=== PATIENT | male | born 1930 | race Caucasian/White ===

== ENCOUNTER 2016-08-25 05:33 | Inpatient (IN) | payer OTHER, MEDICARE ==
[2016-08-25] VITALS (25 sets, daily range): BP systolic 58–134; BP diastolic 37–79
[~2016-08-25] VITALS: Ht 185.4 cm; Wt 92.5 kg
--- NOTE | ~2016-08-25 | H ---
[facility] [place] [address] HISTORY AND PHYSICAL Name: CALLI PEREZ Room #: 443-P ADM IN M.R.#: [id number] Admission: 08/25/16 Attend Phys: Navin Orellana MD Discharge: Date of : 30 Report #: [id number] THIS REPORT FOR: //name// For History and Physical, please see office documentation/handwritten note in the patient's medical record. <ELECTRONICALLY SIGNED> By: Navin Orellana MD 08/28/16 0922 1451 Navin Orellana MD /
--- NOTE | ~2016-08-25 | DEA ---
[facility] [place] [address] [address] SUMMARY Name: CALLI PEREZ Room #: 248-P [facility] IN M.R.#: [id number] Admission: 08/25/16 Attend Phys: Navin Orellana MD Discharge: 09/02/16 Date of : 30 Report #: [id number] THIS REPORT FOR: //name// CC: Mike Orellana DATE OF SERVICE: 09/02/2016 DATE OF : 09/02/2016 HISTORY OF PRESENT ILLNESS: The patient is an 86-year-old man with complicated past medical history, who was initially admitted to the ENT service for a large right cheek squamous cell carcinoma. The patient had radical excision of the right cheek mass. The patient was also found to have bilateral pneumonia. Sputum cultures grew klebsiella. The patient was treated with Zosyn. The patient's hospital stay was complicated with delirium, that has somewhat resolved. The patient remained stable on the floor. However, few days later, the patient became increasingly confused and hypotensive. He was transferred to the intensive care unit. Although chest x-ray showed some clearing infiltrates, his oxygen requirement also has increased. Blood cultures were obtained. The patient was treated with pressors. Blood cultures started growing gram-negative rods. Infectious disease specialist was involved. Zosyn was changed to cefepime, because the patient also developed thrombocytopenia. The patient's respiratory failure became progressively worse. Given the patient's age and comorbidities, family members decided to change code status to DNR and DNI. The patient was treated with the ICU with the supportive care. Next morning, the patient's family members decided on comfort care. The patient continued to decline, became more hypotensive. He was pronounced on 09/02/2016 in the morning. <ELECTRONICALLY SIGNED> By: Yash Navarrete MD 09/06/16 1247 1133 1223 Yash Navarrete MD /nt
--- NOTE | ~2016-08-25 | HC ---
[facility] [address] [address] CONSULTATION Name: CALLI PEREZ Room #: 248-P ADM IN M.R.#: [id number] Admission: 08/25/16 Attend Phys: Navin Orellana MD Discharge: Date of : 30 Report #: [id number] THIS REPORT FOR: //name// CC: Mike Orellana This patient is seen at the request of hospitalist service for thrombocytopenia detected on CBC. He has not had evidence of increased free bleeding from venipuncture sites or IVs. 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 Orellana on 08/25. He subsequently had been on the ventilator as well as receiving antibiotic therapy for sepsis/pneumonia. He is not responsive and his history is gleaned from his old records and charts. He has had a prior history of basal cell carcinoma as well as squamous cell cancer and saw Dr. Ochoa in the spring with a 5-cm lesion involving the lower lid of the eye and cheek. He was seen by Dr. Orellana and also Dr. Meredith in regard to radiation therapy consultation. PAST MEDICAL HISTORY: He has a past medical history of chronic obstructive pulmonary disease along with being on chronic oxygen therapy. He is anticoagulated for atrial fibrillation. He has arthritis. Medically managed hypertension, hypercholesterolemia and gastric reflux. He has prior seizure disorder. He has undergone previous partial colectomy as well as rotator cuff surgery, spine surgery and a right knee arthroplasty. MEDICATIONS: As listed on the MFR. ALLERGIES: NITROGLYCERIN showing hypotension, again not an allergy. He has had nausea related to DEMEROL and tears of the skin related to ADHESIVE TAPES. SOCIAL HISTORY: Smoking, he stopped more than a year ago and is a reformed smoker. He does not drink alcohol or use illicit drugs. REVIEW OF SYSTEMS: His review of systems was not obtainable. PHYSICAL EXAMINATION: GENERAL: Shows him to be intubated and sedated. HEENT: Shows recent surgery/bandage. NECK: Supple. CHEST: Clear. CARDIOVASCULAR: Regular rhythm and rate. ABDOMEN: Distended with skin graft dressings in the right lower quadrant. EXTREMITIES: No clubbing or cyanosis. [facility] [address] [place] [address] CONSULTATION Name: CALLI PEREZ Room #: 248-P [facility] IN .R.#: [id number] Admission: 08/25/16 Attend Phys: Navin Orellana MD Discharge: Date of : 30 Report #: [id number] NEUROLOGIC: No focal localized signs. He is sedated. SKIN: Normal turgor. He is not bleeding from venipuncture sites. LABORATORY DATA: Showed platelet count of 59,000. ASSESSMENT AND PLAN: Mild thrombocytopenia. I suspect that this is related to his current antibiotic therapy and/or sepsis/pneumonia. Labs do not indicate any evidence of DIC. Since the thrombocytopenia is mild, I would not be doing anything further at this time in regard to transfusion. The infectious disease service has stopped some of his antibiotics and would follow subsequent CBCs regarding thrombocytopenia and address as needed clinically if he has evidence of untoward bleeding. By: 0915 1150 Deborah Jovel MD /nt
--- NOTE | ~2016-08-25 | 2DMMODE ---
[facility] [employer] [place] [address] 2 D/M-MODE ECHOCARDIOGRAM Name: CALLI PEREZ Room #: 243-P ADM IN .R.#: [id number] Admission: 08/25/16 Attend Phys: Navin Orellana MD Discharge: Date of : 30 Date of Service: 08/26/16 1353 Report #: [id number] THIS REPORT FOR: //name// APPROVED REPORT Study performed: 08/26/2016 12:54:11 EXAM: Comprehensive 2D, Doppler, and color-flow Echocardiogram Patient Location: ICU Room #: 243 Blood Pressure: 140/78 mmHg HR: 74 bpm Rhythm: Atrial Fibrillation Other Information Study Quality: Good Indications Atrial Fibrillation Respiratory failure. 2D Dimensions RVDd: 46.21 mm LVEF(%): 59.09 (>50%) IVSd: 8.62 (7-11mm) LVOT Diam: 21.12 (18-24mm) LVDd: 44.56 mm PWd: 9.04 (7-11mm) Ascending Ao: 22.99 (22-36mm) LVDs: 30.67 (25-40mm) Aortic Root: 30.04 mm IVC: 31.00 mm Bailey's LVEF: 59.09 % Volumes Left Atrial Volume (Systole) Single Plane 4CH: 104.21 mL Single Plane 2CH: 83.05 mL LA ESV Index: 48.00 mL/m2 Aortic Valve AoV Peak Horacio.: 0.86 m/s AO Peak Gr.: 2.97 mmHg LVOT Max P.68 mmHg LVOT Max V: 0.65 m/s Mitral Valve MV Decel. Time: 125.26 ms [facility] [place] [address] [place] [address] 2 D/M-MODE ECHOCARDIOGRAM Name: CALLI PEREZ Room #: 243-P [facility] IN [facility]#: [id number] Admission: 08/25/16 Attend Phys: Navin Orellana MD Discharge: Date of : 30 Date of Service: 08/26/16 1353 Report #: [id number] E Max Horacio.: 1.18 m/s Pulmonary Valve PV Peak Horacio.: 0.65 m/s PV Peak Gr.: 1.70 mmHg Tricuspid Valve TR Peak Horacio.: 3.07 m/s RAP Estimate: 15.00 mmHg TR Peak Gr.: 37.90 mmHg Left Ventricle The left ventricle is normal size. There is normal left ventricular wall thickness. The left ventricular systolic function is normal. The left ventricular ejection fraction is within the normal range. LVEF is 60-65%. Diastolic functin cannot be accurately assessed. Right Ventricle Right ventricle is mildly dilated. The right ventricular systolic function is normal. Atria Left atrium is severely dilated. Right atrium is dilated. Aortic Valve The aortic valve is normal in structure. Aortic valve is calcified. Mild aortic regurgitation. There is no aortic valvular stenosis. Mitral Valve The mitral valve is normal in structure. Mild to moderate mitral regurgitation. No evidence of mitral valve stenosis. Tricuspid Valve The tricuspid valve is normal in structure. There is mild to moderate tricuspid regurgitation. The right atrial pressure is estimated at 15 mmHg. There is moderate-severe pulmonary hypertension. The estimated PAP was 53 mmHg. Pulmonic Valve The pulmonary valve is normal in structure. Trace pulmonic regurgitation. Great Vessels The aortic root is normal in size. The inferior vena cava is dilated with no inspiratory collapse. Pericardium [facility] [address] [place] [address] 2 D/M-MODE ECHOCARDIOGRAM Name: CALLI PEREZ Room #: 243-P ADM IN M.R.#: [id number] Admission: 08/25/16 Attend Phys: Navin Orellana MD Discharge: Date of : 30 Date of Service: 08/26/16 1353 Report #: [id number] There is no pericardial effusion. <Conclusion> The left ventricle is normal size. The left ventricular systolic function is normal. Right ventricle is mildly dilated. Left atrium is severely dilated. Mild aortic regurgitation. Mild to moderate mitral regurgitation. There is mild to moderate tricuspid regurgitation. The right atrial pressure is estimated at 15 mmHg. There is moderate-severe pulmonary hypertension. The estimated PAP was 53 mmHg. <ELECTRONICALLY SIGNED> By: Vik Viera MD 08/26/16 1353 1353 1353 Vik Viera MD /INF
--- NOTE | ~2016-08-25 | EKG ---
[address] [place] [address] ELECTROCARDIOGRAM REPORT Name: CALLI PEREZ Room #: 443- ADM IN M.R.#: [id number] Admission: 08/25/16 Attend Phys: Navin Orellana MD Discharge: Date of : 30 Report #: [id number] THIS REPORT FOR: //name// [facility] Test Date: 2016-08-28 Test Time: 01:34:58 Pat Name: CALLI PEREZ Department: Room: 443 P Gender: M Forest Aide: al leiva : 1930 Requested By: Crissy Dover Order Number: [id number] MD: Ge Ventura Measurements Intervals [place] Rate: 85 P: [place]: QRS: 53 QRSD: 83 T: 2 QT: 371 QTc: 442 Interpretive Statements Atrial fibrillation Low voltage, extremity leads Baseline wander in lead(s) II Compared to ECG 08/26/2016 08:52:53 No significant changes Electronically Signed On 08-29-2016 12:43:31 CDT by Ge Ventura [email or web address] <ELECTRONICALLY SIGNED> By: Ge Ventura MD, [facility] 08/29/16 1243 0134 013 Ge Ventura MD, [facility] /EPI
--- NOTE | ~2016-08-25 | EKG ---
[address] [employer] [place] [address] ELECTROCARDIOGRAM REPORT Name: CALLI PEREZ Room #: 248-P ADM IN M.R.#: [id number] Admission: 08/25/16 Attend Phys: Navin Orellana MD Discharge: Date of : 30 Report #: [id number] THIS REPORT FOR: //name// [facility] Test Date: 2016-08-31 Test Time: 12:24:54 Pat Name: CALLI PEREZ Department: Room: 248 Gender: M Equity Manager: Heriberto YEH : 1930 Requested By: Navin Orellana Order Number: [id number] MD: Ge Ventura Measurements Intervals [place] Rate: 97 P: [place]: QRS: 53 QRSD: 110 T: -8 QT: 337 QTc: 428 Interpretive Statements Atrial fibrillation Low voltage, extremity leads Nonspecific T abnrm, anterolateral leads Compared to ECG 08/28/2016 01:34:58 No significant changes Electronically Signed On 09-01-2016 7:54:16 CDT by Ge Ventura [email or web address] <ELECTRONICALLY SIGNED> By: Ge Ventura MD, [facility] 09/01/16 0754 1224 1224 Ge Ventura MD, [facility] /EPI
--- NOTE | ~2016-08-25 | S ---
[facility] [address] SURGICAL PATH RPT PROCEDURE Name: CALLI DAI Sarah Room #: 443-P ADM IN M.R.#: [id number] Admission: 08/25/16 Date of : 30 Discharge: Report #: [id number] Path Case #: [id number] PATHOLOGY REPORT COLLECTION DATE: 08/25/2016 RECEIVED DATE: 08/26/2016 SUBMITTING PHYS: Dr. Navin Orellana OTHER PHYS: Dr. Mike Meneses SPECIMEN(S) RECEIVED: A.SCCA right cheek margin 3:00 to 6:00 B.SCCA right cheek margin 6:00 to 9:00 C.SCCA right cheek margin 9:00 to 12:00 D.SCCA right cheek margin 12:00 to 3:00 E.SCCA right cheek deep margin F.SCCA right cheek 2nd margin 1:00 to 6:00 G.Right cheek squamous cell carcinoma * * * * * * * * * * * * FINAL DIAGNOSIS: A. "SCCA right cheek margin 3:00 to 6:00," biopsy: - Skin and subcutaneous tissue with pseudoepitheliomatous hyperplasia showing marked cellular atypia and radiation changes. B. "SCCA right cheek margin 6:00 to 9:00," biopsy: - Skin and subcutaneous tissue with pseudoepitheliomatous hyperplasia and radiation changes; no evidence of invasive carcinoma. C. "SCCA right cheek margin 9:00 to 12:00," biopsy: - Skin and subcutaneous tissue with radiation changes and incidental seborrheic keratosis; no evidence of invasive carcinoma. D. "SCCA right cheek margin 12:00 to 3:00," biopsy: - Skin and subcutaneous tissue with pseudoepitheliomatous hyperplasia showing marked cellular atypia and radiation changes. E. "SCCA right cheek deep margin," biopsy: - Fibroadipose connective tissue and skeletal muscle with no evidence of invasive carcinoma. F. "SCCA right cheek second margin 1:00 to 6:00," biopsy: - Skin and subcutaneous tissue with pseudoepitheliomatous hyperplasia showing marked cellular atypia and radiation changes; new surgical margin negative for invasive squamous cell carcinoma. G. "Right cheek squamous cell carcinoma," wide re-excision: - INVASIVE MODERATELY DIFFERENTIATED KERATINIZING SQUAMOUS CELL CARCINOMA WITH PREVIOUS EXCISION SITE AND MARKED RADIATION CHANGES; SURGICAL MARGINS APPEAR FREE OF INVASIVE CARCINOMA. SYNOPTIC CANCER STAGING REPORT Specimen Site: Skin structure [facility] [address] [place] [address] SURGICAL PATH RPT PROCEDURE Name: CALLI DAI Room #: 443-P [facility] IN M.R.#: [id number] Admission: 08/25/16 Date of : 30 Discharge: Report #: [id number] Path Case #: [id number] SPECIMEN Procedure: Re-excision, wide Primary Tumor Site: Skin Skin of other and unspecified parts of face: right cheek Primary Tumor Site Laterality: Right TUMOR Histologic Type: Squamous cell carcinoma (SCC) Histologic Grade: G2: Moderately differentiated EXTENT Tumor Size: Greatest dimension (cm): 2.4 Additional Dimension (cm): 2.3 Additional Dimension (cm): 1.5 Maximum Tumor Thickness: Thickness (mm): 20 Anatomic Level: V (carcinoma invades subcutaneum) MARGINS Peripheral Margins: Uninvolved by invasive carcinoma Distance of Invasive Carcinoma from Closest Peripheral Margin: Cannot be assessed: additional shave margins submitted and marked radiation changes Deep Margin: Uninvolved by invasive carcinoma Distance of Invasive Carcinoma from Margin: Specify (mm): 4 ACCESSORY FINDINGS Lymph-Vascular Invasion: Not identified Perineural Invasion: Not identified LYMPH NODES No nodes submitted or found STAGE (PTNM) TNM Descriptors: r (recurrent) y (post-treatment) Primary Tumor (pT): pT2: Tumor greater than 2 cm in greatest dimension with or without one additional high risk feature, or any size with two or more high risk features Regional Lymph Nodes (pN): pNX: Regional lymph nodes cannot be assessed Distant Metastasis (pM): Not applicable ADDITIONAL NON-TUMOR Additional Pathologic Findings: marked radiation changes COMMENT: The patient has a history of squamous cell carcinoma, moderate to well differentiated, from two skin and subcutaneous tissue resections ([id number] and [id number]). Clinical correlation is recommended. Junior Network Engineer slides are co-reviewed with Dr. Jessica Bean. The case is discussed with Dr. Navin Orellana on 08/27/16 at approximately 4:45 PM. (COREYW:; d/t: 08/27/16) [address] [address] SURGICAL PATH RPT PROCEDURE Name: CALLI DAI Room #: 443-P ADM IN M.R.#: [id number] Admission: 08/25/16 Date of : 30 Discharge: Report #: [id number] Path Case #: [id number] PATHOLOGIST: Kelly Claire M.D. REPORT ELECTRONICALLY SIGNED BY: Kelly Claire M.D. DATE/TIME: 08/27/2016 22:08 * * * * * * * * * * * * GROSS PATHOLOGY: A. The first specimen is received fresh from the OR labeled, "Calli Dai., and right cheek margin 3:00-6:00, true margin is side, opposite the dye." It consists of a linear portion of skin and subcutaneous tissue measuring 4.8 x 0.3 cm. It is excised to a depth of 0.4 cm. The old margin is inked blue. The 3:00 half of the new margin is inked black. The 6:00 half of the new margin is inked green. The specimen is entirely submitted for one true shave margin section. The frozen section is then submitted as A1. B. The second specimen is received fresh from the OR labeled, "Calli Dai., and right cheek margin 6:00-9:00, true margin is side opposite the dye." It consists of a linear portion of skin and subcutaneous tissue measuring 4.8 x 0.4 cm. It is excised to a depth of 0.5 cm. The old margin is inked blue. The 6:00 half of the new margin is inked black. The 9:00 half of the new margin is inked green. The specimen is entirely submitted for one true shave margin section. The frozen section is then submitted as B1. C. The third specimen is received fresh from the OR labeled, "Dai, Calli R., and right cheek margin 9:00-12:00, true margin is side opposite the dye." It consists of a linear portion of skin and subcutaneous tissue measuring 5.0 x 0.4 cm. It is excised to a depth of 0.4 cm. The old margin is inked blue. The 9:00 half of the new margin is inked black. The 12:00 half of the new margin is inked green. The specimen is entirely submitted for one true shave margin section. The frozen section is then submitted as C1. D. The fourth specimen is received fresh from the OR labeled, "Dai, Don R., and right cheek margin 12:00-3:00, true margin is side opposite the dye." It consists of a linear portion of skin and subcutaneous tissue measuring 5.0 x 0.3 cm. It is excised to a depth of 0.5 cm. The old margin is inked blue. The 12:00 half of the new margin is inked black. The 3:00 half of the new margin is inked green. The specimen is entirely submitted for one true shave margin section. The frozen section is then submitted as D1. E. The fifth specimen is received fresh from the OR labeled, "Suhas Calli R., and right cheek SCCA; deep margin." It consists of an irregular fragment of rosales-red soft tissue and muscle measuring 2.5 x 1.4 x 0.5 cm. It is entirely submitted for one frozen section. The frozen section is then submitted as E1. F. The sixth specimen is received fresh from the OR labeled, "Calli Dai R., and SCCA right cheek; second margin 1:00-6:00." It consists of an irregular to linear portion of skin and subcutaneous tissue [facility] [address] [place] [address] SURGICAL PATH RPT PROCEDURE Name: CALLI DAI Room #: 443-P ADM IN M.R.#: [id number] Admission: 08/25/16 Date of : 30 Discharge: Report #: [id number] Path Case #: [id number] measuring 6.5 x 1.0 cm. It is excised to a depth of 0.5 cm. The old margin is inked blue. 1:00-3:00 of the new margin is inked black. 3:00-5:00 of the new margin is inked green. 5:00-6:00 of the new margin is inked red. The specimen is submitted for two frozen sections. The frozen sections are then submitted as: F1 4-6:00 true shave margin section F2 1-2:00 true shave margin section and 2-4:00 radial margin section ([facility]; d/t: 08/25/16) G. The specimen is received in formalin labeled "Calli Dai, right cheek squamous cell carcinoma, short suture lateral at 9:00, long suture inferior at 6:00". Received is an oriented irregular excision of skin measuring 5.1 x 4.2 x 2.5 cm in greatest dimensions with a long suture designating the inferior 6:00 margin and a short suture designating the lateral 9:00 margin. The specimen is inked as follows: 12 to 6:00-black, 6 to 9:00-yellow and 9 to 12:00-blue. The epidermal surface displays a well-circumscribed, raised, flaky to partially crusted and pale pink to rosales-brown lesion measuring 2.4 x 2.3 x 1.5 cm. Sectioning reveals the lesion to grossly extend into the underlying soft tissue displaying a maximum depth of 2.1 cm, which is 0.2 cm from the deep margin. Specimen is submitted representatively as follows: G1 12:00 margin, en face G2 3:00 margin, en face G3 6:00 margin, en face G4 9:00 margin, en face G5-G13 entire lesion submitted from 12:00 to 6:00 aspects, with the closest margin submitted in cassette G9. (CAA; 08/26/2016) FROZEN SECTION DIAGNOSIS: (Danis Claire M.D.) A. "3:00-6:00": - DIFFUSELY POSITIVE FOR INVASIVE TUMOR. B. "6:00-9:00": - Negative for invasive tumor. C. "9:00-12:00": - Negative for invasive tumor. D. "12:00-3:00": - POSITIVE FOR INVASIVE TUMOR AT 3:00. E. "Deep margin": - Negative for invasive tumor. F. "Second margin 1:00-6:00": FS1-No definite invasive tumor at new 4:00-6:00 margin. FS2-No tumor at 1:00-4:00 margin. The case is discussed with Dr. Navin Orellana in the operating room, and written reports are placed in the patient's chart. (COREYW:; d/t: 08/25/16) Testing performed [place] [facility] [place] [address] SURGICAL PATH RPT PROCEDURE Name: CALLI DAI Room #: 443-P ADM IN M.R.#: [id number] Admission: 08/25/16 Date of : 30 Discharge: Report #: [id number] Path Case #: [id number] [facility] [address], [place] [address] CLINICAL HISTORY: Excision of squamous cell carcinoma INITIAL CPT CODE(S): A; 66964, 57190 B; 22825, 70305 C; 78999, 97253 D; 42649, 38826 E; 47611, 54233 F; 55765, 04145, 00677 G; 26570 Professional services performed by [facility] at [facility] [address], [place] [address] Technical services performed by [facility] at [address] [place] [address], [address], [place] [address]. [facility] [address] [place] [address] PHONE: [phone] DIRECTOR: Mumtaz Espitia M.D. * * * END OF REPORT * * *
--- NOTE | ~2016-08-25 | HC ---
[facility] [place] [address] CONSULTATION Name: CALLI PEREZ Room #: 443-P [facility] IN M.R.#: [id number] Admission: 08/25/16 Attend Phys: Navin Orellana MD Discharge: Date of : 30 Report #: [id number] THIS REPORT FOR: //name// CC: Mike Orellana REASON FOR CONSULTATION: Respiratory failure and AFib. 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 After the procedure, the patient could not be weaned off the ventilator. As such, Pulmonary and Cardiology were consulted. The patient is currently intubated. REVIEW OF SYSTEMS: Unable to obtain. PAST MEDICAL HISTORY: 1. Permanent AFib, on Pradaxa at home. 2. Prior CVA in 2011. 3. Dementia. 4. Parkinson's. 5. Hypertension. 6. Seizure disorder. 7. BPH. 8. Chronic venous insufficiency. 9. O2 therapy at home. 10. Squamous cell carcinoma status post radiation times 14 treatments and surgical excision yesterday. SMOKING HISTORY: He has quit smoking. FAMILY HISTORY: Noncontributory. ALLERGIES: Include TAPE, NITROGLYCERIN and MEPERIDINE. PHYSICAL EXAMINATION: VITAL SIGNS: Temperature is 36.2, pulse in the 50s, respiration 14, blood pressure 98/52, sats are 98% on the vent. GENERAL: He is in no acute distress. HEENT: He has a large excision on the right cheek, which is currently packed. NECK: Supple with no thyromegaly. HEART: Irregularly irregular and bradycardic. There are no murmurs. There is no elevated jugular venous pressure. LUNGS: Clear to auscultation anteriorly. ABDOMEN: Soft, nontender, nondistended with no hepatosplenomegaly. EXTREMITIES: There are chronic venous changes. There is trace edema and pulses [facility] [address] [place] [address] CONSULTATION Name: ANACALLI Room #: 443-P [facility] IN .R.#: [id number] Admission: 08/25/16 Attend Phys: Navin Orellana MD Discharge: Date of : 30 Report #: [id number] are 1+ throughout. NEUROLOGIC: Cranial nerves unable to determine due to sedation. LABORATORY DATA: PH 7.3, pCO2 64, pO2 114, sodium 142, potassium 4.4, BUN 17, creatinine 0.8. Chest x-ray shows some atelectasis and pleural effusions. His telemetry shows atrial fibrillation with rates in the 50s. His last echo was on 06/04/2016, so an EF of 60-65%, no significant valvular abnormalities. A Lexiscan performed in 04/2011 showed no ischemia and EF of 65-70%. ASSESSMENT AND PLAN: The patient is an 86-year-old with history of permanent atrial fibrillation with respiratory failure and inability to extubate from the ventilator. It sounds like he has probably some chronic lung issues as he is a prior smoker and requires supplemental oxygen during the day when asleep. There could be a component of diastolic heart failure as well. This is not unlikely given his advanced age. To further evaluate his cardiovascular status, I have ordered an EKG, echo, troponin and proBNP. Further treatment will be based on these study's findings. <ELECTRONICALLY SIGNED> By: Aung Strickland MD 08/27/16 1524 0840 1256 Aung Strickland MD /nt
--- NOTE | ~2016-08-25 | HC ---
[facility] [place] [address] CONSULTATION Name: CALLI PEREZ Sarah Room #: 248-P [facility] IN M.R.#: [id number] Admission: 08/25/16 Attend Phys: Navin Orellana MD Discharge: 09/02/16 Date of : 30 Report #: [id number] THIS REPORT FOR: //name// CC: Mike Orellana DATE OF SERVICE: 08/25/2016 REFERRING PROVIDER: Anesthesia Department as well as Dr. Navin Orellana. REASON FOR CONSULTATION: Postoperative respiratory failure. CHIEF COMPLAINT: Squamous cell carcinoma of the face. HISTORY OF PRESENT ILLNESS: Our group was asked to see the patient in consultation while hospitalized at [facility]. He is unable to give any history. is at bedside and is able to give some history. He is an 86-year-old male who has an unclear pulmonary history. says he has a p.r.n. nebulizer, which he does not need often and only uses for cough and also states he is on supplemental oxygen, 3 liters nasal cannula 22/11, however, can only identify pulmonary disease of bilateral pneumonia after prior shoulder surgery and sleep apnea for which he is intolerant to CPAP. Underwent a significant squamous cell of the face resection, the right maxillary area earlier this afternoon; however, postoperatively was unable to wean from mechanical ventilatory support. The patient is in ICU on mechanical ventilator. states he has not had any cough, congestion or wheezing, does not really have any significant respiratory difficulties other than need for supplemental oxygen, again which is for unclear reasons. ALLERGIES: NITROGLYCERIN, ADHESIVE, DEMEROL. OUTPATIENT MEDICATIONS: Include atorvastatin, Lotensin, carbidopa/levodopa, Pradaxa, Lexapro, Nexium, Proscar, Lasix, Keppra, ReQuip, Flomax, iron, DuoNebs, Aldactone, Phenergan, Lortab. PAST MEDICAL HISTORY: 1. Atrial fibrillation. 2. Hypertension. 3. Hyperlipidemia. 4. Parkinson's. 5. Probable dementia. 6. Chronic lower extremity edema. SOCIAL HISTORY: Unobtainable due to current status. FAMILY HISTORY: Unobtainable and not likely contributory due to his advanced [facility] [address] [place] [address] CONSULTATION Name: CALLI PEREZ Room #: 248-P [facility] IN M.R.#: [id number] Admission: 08/25/16 Attend Phys: Navin Orellana MD Discharge: 09/02/16 Date of : 30 Report #: [id number]. REVIEW OF SYSTEMS: Unobtainable as the patient is currently intubated. PHYSICAL EXAMINATION: VITAL SIGNS: The patient is afebrile, pulse 60s, respiratory rate 16, blood pressure 134/37. GENERAL: This is an elderly male resting comfortably on ventilator. ENT: Endotracheal tube in place, right maxillary packing of surgical site noted. NECK: Supple, no lymphadenopathy. LUNGS: Clear. There are no wheezes or crackles. CARDIOVASCULAR: Heart regular. No murmurs or gallops noted. ABDOMEN: Soft, no masses. EXTREMITIES: Bilateral lower extremity wounds were wrapped. There appeared to be underlying edema. LABORATORY DATA: Chemistry profile did reveal mildly elevated CO2, otherwise normal. Arterial blood gas revealed pH 7.31, pCO2 of 65, pO2 of 115, bicarbonate of 31, apparently on SIMV pressure support mode. No other labs available at this time, chest x-ray pending my request. IMPRESSION: 1. Postoperative respiratory failure of unclear etiology, likely related to sedating medications and the patient has had prior difficulty with some anesthesia in the past. Given the late hour would favor continued sedation overnight and extubate in a.m. if appropriate. 2. Continue with propofol for sedation. Apparent IV access issues. Would consider changing to midazolam as an alternative if continued IV access problems. 3. Hypercapnic respiratory failure. 4. History of chronic hypoxemic respiratory failure. 5. History of obstructive sleep apnea. 6. History of hypertension. 7. History of atrial fibrillation. 8. History of Parkinson's. SUGGEST: As outlined above, ventilator weaning early a.m., minimize pain medicines that may contribute to weaning failure. Total critical care time 40 minutes, not including any procedures. Discussed with at bedside and nursing as well as respiratory therapy, all questions answered. <ELECTRONICALLY SIGNED> By: Juan Jose Mendez MD 09/06/16 1254 2206 1212 Juan Jose Mendez MD /nt
--- NOTE | ~2016-08-25 | HC ---
[facility] [place] [address] CONSULTATION Name: CALLI PEREZ Room #: 248-P [facility] IN M.R.#: [id number] Admission: 08/25/16 Attend Phys: Navin Orellana MD Discharge: Date of : 30 Report #: [id number] THIS REPORT FOR: //name// CC: Mike Orellana REASON FOR CONSULTATION: I was asked to evaluate concerning sepsis. 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 He had undergone several surgeries regarding this along with radiation therapy. First surgery was on May 24, then again June 28, with last surgery on August 25. He had extensive excision with skin grafting. He does have underlying history of atrial fibrillation and Parkinson's disease with mild dementia. Probably has some component of obstructive lung disease. He does have a nebulizer at home, which he uses on occasion. He has not been on any chronic inhaler program, otherwise. He does require 3 liters of oxygen per nasal cannula. He has had previous pneumonia. He does have underlying obstructive sleep apnea. Postoperatively, he has had delirium. He has been on Zosyn for Klebsiella identified from his sputum culture obtained on 08/28. Due to his surgical intervention, he was unable to go BiPAP treatment last evening. He was brought down to the ICU due to hypotension and further respiratory compromise. The patient was given narcotics and anxiolytics last evening because of his irritability. Now, he is relatively sedate. Oxygen requirements include 4 liters of oxygen per nasal cannula. He has had a loose, minimally productive cough. He has a left upper extremity PICC along with indwelling Black catheter. There has been no nausea or vomiting. He has had no diarrhea. He has had no new skin lesions, decubiti, or rash. He does have underlying venous stasis disease and venous stasis ulcers to both lower extremities. Wound care has been dressing this. REVIEW OF SYSTEMS: Otherwise, noncontributory. He does have a seizure disorder, but we have noticed no tonic-clonic seizures. After transfer to the intensive care unit, he has been placed on Levophed, now on 3 mcg. He has received 1700 mL of fluid with adequate urine output. Looking at his current vital signs, his heart rate was 80 with CVP of 13, blood pressure is stable, 142/63. ALLERGIES: NITROGLYCERIN, ADHESIVES TAPE, and DEMEROL. MEDICATIONS: As noted on his MAR, now including Zosyn. PAST MEDICAL HISTORY: Atrial fibrillation, hypertension, hyperlipidemia, Parkinson's disease, mild dementia, venous stasis disease in the lower extremities, squamous cell carcinoma of the skin, obstructive sleep apnea, previous pneumonia, coronary artery disease, and previous stroke. [facility] [address] [place] [address] CONSULTATION Name: CALLI PEREZ Room #: 248-P [facility] IN M.R.#: [id number] Admission: 08/25/16 Attend Phys: Navin Orellana MD Discharge: Date of : 30 Report #: [id number] FAMILY HISTORY: Noncontributory. SOCIAL HISTORY: Past smoker. No significant alcohol intake. Review of systems noted above. PHYSICAL EXAMINATION: VITAL SIGNS and GENERAL: Currently afebrile, hemodynamically stable, on low dose Levophed. He has good urine output. A large wound to his right face with bolstering of his skin graft. He is able to open his eyes. He was lethargic. He has coarse cough with minimal sputum production. He is on 4 liters of oxygen per nasal cannula. LUNGS: Coarse bilaterally. HEART: Regular without murmur. ABDOMEN: Soft and nontender. No hepatosplenomegaly or mass appreciated. GENITOURINARY: External genitalia unremarkable with indwelling Black catheter. EXTREMITIES: Lower extremities were in wraps, they were taken down. He has minimal edema. He has several shallow ulcerations involving both legs with no associated cellulitis identified. LABORATORY STUDIES: Sodium 140, potassium 4.6, bicarb of 37, creatinine 1.2. Hemoglobin 9.5, platelet count 59,000, white count 3.9, 70% segs, 10% bands. MRSA screen negative. Sputum culture from 08/28, Klebsiella, which was resistant to ampicillin and intermediate to ampicillin and sulbactam. Blood cultures today are pending. CT scan of the head showed right mastoid and ethmoid sinusitis. Chest x-ray shows bilateral basilar changes, left greater than right. IMPRESSION: An 86-year-old with squamous cell carcinoma of the face, which is recurrent disease, now postoperative day #7. He has delirium, basilar pneumonia, transient shock, now improved with fluid resuscitation and vasopressors. 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 It is noted; however, his platelet count was low preoperatively at 94. Component of medication-induced thrombocytopenia would also be considered while on Zosyn. Recommend obtaining a urinalysis in addition to the blood cultures that were obtained. We will try to repeat a sputum culture. Continue with broad antibiotic coverage and decongestants. We will monitor in the intensive care unit. I discussed with nursing staff. Noting that his CVP is normal with a heart rate well controlled and stable blood pressure now, we will continue with his current of fluid resuscitation. <ELECTRONICALLY SIGNED> By: Tremaine Haynes MD 09/02/16 0752 1005 2206 Tremaine Haynes MD /nt
--- NOTE | ~2016-08-25 | O ---
[facility] [address] OPERATIVE REPORT Name: CALLI PEREZ Room #: 248-P [facility] IN M.R.#: [id number] Admission: 08/25/16 Attend Phys: Navin Orellana MD Discharge: 09/02/16 Date of : 30 Report #: [id number] THIS REPORT FOR: //name// CC: Mike Orellana PREOPERATIVE DIAGNOSIS: Bolster in place, post-full thickness skin graft, right cheek. POSTOPERATIVE DIAGNOSIS: Bolster in place, post-full thickness skin graft, right cheek. OPERATION PERFORMED: Takedown of bolster dressing. DESCRIPTION OF PROCEDURE: In the patient's Intensive Care Unit room with an operative team, the bolster dressing was taken down, taking care to first cut the silk sutures then carefully remove the Xeroform and cotton. The skin graft appears to be 100% take. There was really no significant bleeding during the procedure. The patient was very agitated and combative, requiring Haldol. The wound was dressed with Bactroban ointment around the entire graft and edges. <ELECTRONICALLY SIGNED> By: Navin Orellana MD 09/02/16 1354 1557 1820 Navin Orellana MD /nt
--- NOTE | ~2016-08-25 | O ---
[facility] [place] [address] OPERATIVE REPORT Name: CALLI PEREZ Room #: 243-P [facility] IN M.R.#: [id number] Admission: 08/25/16 Attend Phys: Navin Orellana MD Discharge: Date of : 30 Report #: [id number] THIS REPORT FOR: //name// CC: ARIANNA Ochoa MD DATE OF SERVICE: 08/25/2016 PREOPERATIVE DIAGNOSIS: Malignant recurrent squamous cell carcinoma, right cheek. POSTOPERATIVE DIAGNOSIS: Malignant recurrent squamous cell carcinoma, right cheek. OPERATION PERFORMED: 1. Radical excision malignant squamous cell carcinoma, right cheek, total defect 11 cm x 10 cm. 2. Full thickness skin graft reconstruction, right abdomen to right cheek. SURGEON: Navin Orellana MD. ANESTHESIA: General endotracheal. REVENUE FIELD AUDITOR: OR staff. INDICATIONS: The patient is an 86-year-old gentleman referred by his ophthalmic plastic surgeon, Dr. Ochoa after recent excision of squamous cell carcinoma on the right lower eyelid, was found to be invasive with positive margins. A second excision was done and skin graft reconstruction was done; however, within weeks of this, he began to develop a tumor just inferior on the cheek which subsequently has continued to grow. Because of the concern of the early recurrence, the status of his immune function as well as concern for lymphatic spread, the patient was recommended to Dr. Meredith and is in the third week of radiation treatment. I have been following him weekly. The tumor was not responding to aggressive radiation therapy and in light of that, recommendations were made to proceed with radical wide local excision for surgical salvage and then 2 secondarily continue the radiation therapy because of fear of persistent lymphatic spread and possible lymph node metastases. Thus far on the CT scan, there has been no evidence of any lymph node involvement. The patient has met with Dr. Mianya, medical oncologist. I am interested in medical chemotherapy and ultimately, if we can get Keytruda treatment. [facility] [address] [place] [address] OPERATIVE REPORT Name: CALLI PEREZ Room #: 243-P [facility] IN .R.#: [id number] Admission: 08/25/16 Attend Phys: Navin Orellana MD Discharge: Date of : 30 Report #: [id number] DESCRIPTION OF PROCEDURE: The patient was brought to the operating room and placed supine on the operating table. After adequate general anesthesia was achieved via endotracheal intubation, he was turned 180 degrees. Attention was turned to the right face. The planned incision was marked out, taking a 1 cm margin around the gross tumor complicated by the inflammation from radiation therapy. This was injected with 1% Xylocaine with 1:100,000 epinephrine. The patient was then prepped and draped. In addition, a site was searched for a skin graft. Unfortunately, his almost entire body was covered with condemned skin. I was able to find some free skin in his groin and upper abdomen, which was chosen for the graft. This was also prepped and draped in a sterile fashion. The procedure began with a wide excision around the tumor so taking again 1 cm margins around the gross tumor and induration of the skin. This defect measured 8 x 7 cm. This was delivered off the field in formalin after marking margins with the lateral 9 o'clock margin as a short suture and the inferior 6 o'clock margin as a long suture. The edges of the incision were then painted with methylene blue and a separate 5 mm margin was taken off the patient in quadrants 12 o'clock to 3 o'clock, 3 o'clock to 6 o'clock, etc. These were delivered as fresh specimens to pathology for frozen section. In addition, a fifth margin was taken of the deep facial musculature and fat. All of the margins were clear except for involvement from around 2 o'clock to 6 o'clock. A second margin was then taken taking 1 cm of tissue now from 2 o'clock to 6 o'clock. This revealed radiation change, but no evidence of gross tumor and appeared to be a clear margin. This involved skin on the dorsum of the nose and upper lip by the time it was all excised. This was a total excision of 11 x 10 cm, essentially his entire right cheek. This involved deep tissue including the buccal fat as well as the facial musculature and undoubtedly branches of the facial nerve in their distal distribution. The patient had been warned preoperatively about expected paralysis of the buccal and branches of the facial nerve. Hemostasis was assured with clip ligature and bipolar cauterization. This wound was now converted. Gloves and instruments were changed and attention was turned to the abdomen. An 8 x 6 cm graft was marked and then, the ends extended as a fusiform excision. This was a large piece of skin that was removed. This was removed off the field after incising with a #15 blade. Wide undermining was done into the groin and abdomen and then, the skin was advanced and closed on itself with interrupted 4-0 deep dermal sutures and noah on skin. This was dressed with Mastisol and Steri-Strips and an OpSite. The skin graft full thickness was then defatted and then inset into the defect once the margins had been cleared with interrupted 4-0 chromic. Complete closure was achieved and the graft was modified to fit exactly into the defect. Once this was in position, 2-0 silk was then placed as stay sutures around the periphery. Xeroform was then placed followed by mineral oil soaked cotton balls as a bolster dressing. The dressing was then tied as a bolster dressing with the silks holding the graft in position. Dr. Ochoa's original skin grafts were [facility] [address] [address] OPERATIVE REPORT Name: ANACALLI Room #: 243-P [facility] IN M.R.#: [id number] Admission: 08/25/16 Attend Phys: Navin Orellana MD Discharge: Date of : 30 Report #: [id number] removed and the margin was the lower lid margin. Once the graft was then positioned, the patient's eye was washed with balanced salt solution and he was returned to anesthesia. Sponge and needle counts were correct. There were no complications. Blood loss was about 300 mL. The patient will be watched overnight for monitoring presuming he does well. He will be discharged to home with plans to follow up with me in 1 week for takedown of bolster dressing. Written and verbal discharge instructions and emergency precautions have been given to his and grandson. DISCHARGE MEDICATIONS: Include cephalexin 500 mg b.i.d. for 10 days, Phenergan suppository 25 mg 1 per rectum q. 4-6 hours p.r.n., hydrocodone/acetaminophen 7.5/325 one to two q. 4-6 hours p.r.n. He is instructed on light activity and a soft diet. He is instructed on water precautions for the graft. <ELECTRONICALLY SIGNED> By: Navin Orellana MD 08/26/16 1630 1635 1755 Navin Orellana MD /nt
--- NOTE | ~2016-08-25 | EKG ---
[address] [address] ELECTROCARDIOGRAM REPORT Name: CALLI PEREZ Room #: 443-P [facility] IN M.R.#: [id number] Admission: 08/25/16 Attend Phys: Navin Orellana MD Discharge: Date of : 30 Report #: [id number] THIS REPORT FOR: //name// [facility] Test Date: 2016-08-26 Test Time: 08:52:53 Pat Name: CALLI PEREZ Department: Room: 443 Gender: M Clerical Secretary: roberto : 1930 Requested By: Aung Strickland Order Number: [id number] MD: Ge Ventura Measurements Intervals [place] Rate: 57 P: RI: QRS: 42 QRSD: 87 T: -26 QT: 459 QTc: 447 Interpretive Statements Atrial fibrillation Low voltage, extremity leads No previous ECG available for comparison Electronically Signed On 08-27-2016 8:14:19 CDT by Ge Ventura [email or web address] <ELECTRONICALLY SIGNED> By: Ge Ventura MD, [facility] 08/27/16 0814 0852 0852 Ge Ventura MD, FACC /EPI
--- NOTE | ~2016-08-25 | HC ---
[facility] [place] [address] CONSULTATION Name: CALLI PEREZ Room #: 248-P [facility] IN M.R.#: [id number] Admission: 08/25/16 Attend Phys: Navin Orellana MD Discharge: 09/02/16 Date of : 30 Report #: [id number] THIS REPORT FOR: //name// CC: Mike Orellana DATE OF SERVICE: 08/30/2016 WOUND CARE CONSULTATION PRIMARY CARE PHYSICIAN: Mike Meneses MD REFERRING PHYSICIAN: Navin Orellana MD CHIEF COMPLAINT: Bilateral lower extremity ulcerations with edema. 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 Navin Orellana. The patient postoperatively was having difficulty being extubated and he was in the ICU for a couple of days. The patient then made it to the floor where it was noted that patient had compression wraps on his lower extremities, which the family said had recently been changed twice weekly at the wound center at [place]. I am asked to follow the patient for the wound on his legs as well as his edema. It should be noted the patient had approximately 14 radiation treatments prior to the removal of the cancer on his right cheek. 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 CURRENT MEDICATIONS: Multiple. I reviewed the patient's medication list. DRUG ALLERGIES: INCLUDES NITROGLYCERIN, ADHESIVE AND DEMEROL. SOCIAL HISTORY: The patient has a history of smoking, quit several years ago. FAMILY HISTORY: Not pertinent to current medical condition. REVIEW OF SYSTEMS: CONSTITUTIONAL: The patient denies fevers or chills. NEUROLOGIC: The patient complains of generalized weakness, but no isolated weakness in arms or legs. EYES: No complaints. ENT: No complaints. [facility] [address] [place] [address] CONSULTATION Name: CALLI PEREZ Room #: 248-P [facility] IN [facility].#: [id number] Admission: 08/25/16 Attend Phys: Navin Orellana MD Discharge: 09/02/16 Date of : 30 Report #: [id number] CARDIAC: The patient denies chest pain, palpitations, but does have chronic lower extremity edema, which patient's states it is markedly improved since he has been in bed for the past several days. RESPIRATORY: The patient denies shortness breath, cough or wheezes. GASTROINTESTINAL: The patient denies nausea, vomiting or abdominal pain. GENITOURINARY: The patient denies urgency or frequency. MUSCULOSKELETAL: No complaints. SKIN: The patient has a skin graft surgical site on the right cheek, which is sewn into place as well as a donor site along the right lower quadrant abdominal wall with dressing in place. On bilateral lower extremities, patient has multiple superficial ulcerations. PHYSICAL EXAMINATION: VITAL SIGNS: T-max 36.6. Rest of vital signs is stable. GENERAL: This is an alert and oriented x 3, person, place and time, elderly white male who is in no acute distress. HEENT: Normocephalic and atraumatic. There is a right surgical wound sewn into his right cheek with Xeroform covering on top of this that is intact. Right sclera is erythematous and bloody. Left sclera is clear. Pupils are round. Mucous membranes are slightly dry. NECK: No signs of JVD or masses. LUNGS: Slightly diminished breath sounds heard throughout. Occasional scattered wheeze. CHEST: Nontender. HEART: Irregularly irregular without murmur. ABDOMEN: Soft, otherwise nontender. Right lower quadrant has some abdominal surgical dressing, which is moist but intact and is supposed to be left in place until Tuesday per Dr. Orellana's orders. EXTREMITIES: The patient has 1-2+ edema in bilateral lower extremities. There are multiple superficial ulcerations on lower extremities, all of which are clean and granulating without signs of infection. Distal pulses are intact. Bilateral heels are intact. NEUROLOGIC: Cranial nerves 2-12 are grossly intact. Motor and sensory are grossly intact. LABORATORY VALUES: White count 6.7 and hemoglobin 10.2. WOUND CARE COURSE: I spoke with the patient and his . Considered at this time, we will replace the 4 layer compression wraps, which the nurses are doing at this time at the bedside and placing ____ over the open ulcerations, cover this with non-adhesive dressing. This dressing will be kept in place at least until or Tuesday depending on if he is still in the hospital. The surgical dressing will be cared for by Dr. Navin Orellana. IMPRESSION: 1. Multiple ulcerations, limited breakdown of skin on bilateral lower [facility] [address] [place] [address] CONSULTATION Name: CALLI PEREZ Room #: 248-P [facility] IN M.R.#: [id number] Admission: 08/25/16 Attend Phys: Navin Orellana MD Discharge: 09/02/16 Date of : 30 Report #: [id number] extremities secondary to venous insufficiency with edema. 2. Venous insufficiency with edema. 3. Status post radical resection of squamous cell carcinoma of the right cheek. 4. Status post radiation therapy to the right squamous cell carcinoma of the cheek. 5. History of coronary artery disease. PLAN: At this time, we will once again replace the wraps at the bedside with 4-layer compression wraps. We will maximize patient's oral supplementation to protein for healing. The patient is able to be up and about. Start physical and occupational personal therapy for strengthening. We will continue to follow patient while he is here in the hospital. I appreciate the ability to consult. <ELECTRONICALLY SIGNED> By: Villa Marquez MD 09/08/16 0826 [id number] Villa Marquez MD /nt
[~2016-08-25 05:33] MED LIST: ALDACTONE25 MG PO; ATIVAN1 MG PO; DUONEB 2.5-0.5 M3 ML INH; FLOMAX0.4 MG PO; IMDUR 30 MG TAB30 M1 PO; IPRAT-ALBUT 0.5-3 ML IH; IRON325 PO; KEPPRA 500 MG500 M1 PO; LASIX 20 MG TAB20 MG PO; LEXAPRO20 MG PO; LIPITOR 10 MG10 M1 PO; LOTENSIN20 MG PO; NEXIUM40 MG PO; PRADAXA150 MG PO; PROSCAR 5MG TABL5 MG PO; REQUIP 1 MG TABL1 M1 PO; REQUIP XL2 MG PO; SINEMET CR 50/21 TAB PO; TRAZODONE HCL100 MG PO
[2016-08-25 10:52] LABS: CALCIUM 8.8 mg/dL (8.5-10.1); CREATININE 0.8 mg/dL (0.7-1.3); POTASSIUM 4.4 mmol/L (3.5-5.1)
[2016-08-25] MEDS ORDERED: PROMS25 WY RECTAL (16:43)
[2016-08-25] MEDS ORDERED: LORTAB 7.5-3251 EACH PO (16:44)
[2016-08-25] MEDS ORDERED: ARTIFICIAL TEAR15 M1 OPHTHALMIC (16:46)
[2016-08-25] MEDS ORDERED: ARTIFICIAL TEA3.5 G2 OPHTHALMIC (16:46)
[2016-08-25 21:45] LABS: ABG SAMPLE TYPE ARTERIAL; BE(vivo) 3.5 mmol/L (-2 to +3); HCO3 31.4 mmol/L (22.0-26.0); LACTATE 1.06 mmol/L (0.5-2.0); O2(CT) 16.5 mL/dL (15.0-23.0); O2Hb 96.8 % (92.0-98.0); PCO2 64.5 mmHg (35.0-45.0); PO2 114.9 mmHg (80.0-100.0); sO2 97.7 % (92.0-98.0); tCO2 33.4 mmol/L (24.0-30.0)
[2016-08-25 21:47] LABS: Pressure Support 6 cm H20; STICK SITE L.RADIAL; TIDAL VOLUME 500 ml; pH 7.305 (7.360-7.450)
[2016-08-26] VITALS (68 sets, daily range): BP systolic 83–149; BP diastolic 45–126
[2016-08-26 11:00] LABS: ABG SAMPLE TYPE ARTERIAL; BE(vivo) 6.7 mmol/L (-2 to +3); HCO3 33.3 mmol/L (22.0-26.0); LACTATE 1.75 mmol/L (0.5-2.0); O2(CT) 15.7 mL/dL (15.0-23.0); O2Hb 95.3 % (92.0-98.0); PCO2 57.9 mmHg (35.0-45.0); PO2 91.6 mmHg (80.0-100.0); pH 7.378 (7.360-7.450); sO2 96.7 % (92.0-98.0); tCO2 35.1 mmol/L (24.0-30.0)
[2016-08-26 11:01] LABS: ABG COMMENT CPAP X 25 MIN; Pressure Support 8 cm H20; STICK SITE L.RADIAL
[2016-08-26 11:33] LABS: NT-PRO BRAIN NAT PEPTIDE 954 pg/mL (<300); TROPONIN-I < 0.04 ng/mL (<0.04-0.07)
[2016-08-27 04:17] VITALS: BP 115/38
[2016-08-27 08:00] VITALS: BP 108/56
[2016-08-27 09:15] LABS: CALCIUM 8.6 mg/dL (8.5-10.1); CREATININE 0.8 mg/dL (0.7-1.3); POTASSIUM 4.4 mmol/L (3.5-5.1)
[2016-08-27 10:15] LABS: HEMATOCRIT 35.7 % (42.0-52.0); HEMOGLOBIN 11.6 gm/dL (14.0-18.0); MCH 30.4 pg (26.0-34.0); MCHC 32.5 g/dL (28.0-37.0); MCV 93.5 fL (80.0-100.0); RBC 3.81 mil/uL (4.50-6.00); RDW 15.8 % (10.5-14.5); WBC 6.8 thou/uL (4.0-11.0)
[2016-08-27 10:16] LABS: MANUAL DIFF YES
[2016-08-27 11:26] VITALS: BP 101/53
[2016-08-27 11:38] LABS: ABSOLUTE NEUTROPHILS 5.7 thou/uL (1.4-8.2); METAMYELOCYTES 1 %; OVALOCYTES 1+; TOTAL CELL COUNT 100
[2016-08-27 11:39] LABS: ANISOCYTOSIS SLIGHT; PLATELET COUNT 94 thou/uL (150-400); PLATELET ESTIMATE DECREASED; POLYCHROMASIA SLIGHT
[2016-08-27 15:19] VITALS: BP 101/53
[2016-08-27 15:41] LABS: URINE BILIRUBIN NEGATIVE (Negative); URINE BLOOD TRACE (Negative); URINE GLUCOSE-RANDOM* NEGATIVE (Negative); URINE KETONES NEGATIVE (Negative); URINE LEUKOCYTES-REFLEX NEGATIVE (Negative); URINE PROTEIN (DIPSTICK) NEGATIVE (Negative); URINE UROBILINOGEN 0.2 E.U./dl (0.2-1.0)
[2016-08-27 15:43] LABS: URINE COLOR COLORLESS
[2016-08-27 16:05] VITALS: BP 131/62
[2016-08-27 20:50] VITALS: BP 145/84
[2016-08-27 21:14] LABS: TSH 5.162 uIU/mL (0.358-3.740)
[2016-08-28 01:46] LABS: ABG SAMPLE TYPE ARTERIAL; BE(vivo) 6.6 mmol/L (-2 to +3); HCO3 33.5 mmol/L (22.0-26.0); LACTATE 0.94 mmol/L (0.5-2.0); O2(CT) 15.8 mL/dL (15.0-23.0); O2Hb 91.9 % (92.0-98.0); PCO2 59.3 mmHg (35.0-45.0); PO2 72.2 mmHg (80.0-100.0); sO2 93.7 % (92.0-98.0); tCO2 35.3 mmol/L (24.0-30.0)
[2016-08-28 01:47] LABS: STICK SITE R.RADIAL
[2016-08-28 03:58] VITALS: BP 146/81
[2016-08-28 06:21] LABS: CALCIUM 8.4 mg/dL (8.5-10.1); CREATININE 0.8 mg/dL (0.7-1.3); MAGNESIUM 1.7 mg/dL (1.8-2.4); POTASSIUM 4.2 mmol/L (3.5-5.1)
[2016-08-28 06:53] LABS: BASOPHILS 0.7 % (0.0-2.0); EOSINOPHILS 0.3 % (0.0-3.0); HEMATOCRIT 36.6 % (42.0-52.0); HEMOGLOBIN 11.9 gm/dL (14.0-18.0); LYMPHOCYTES 14.5 % (24.0-44.0); MCH 30.2 pg (26.0-34.0); MCHC 32.5 g/dL (28.0-37.0); MCV 93.2 fL (80.0-100.0); MONOCYTES 8.8 % (1.0-8.0); PLATELET COUNT 86 thou/uL (150-400); POLYS 75.7 % (36.0-66.0); RBC 3.93 mil/uL (4.50-6.00); RDW 15.5 % (10.5-14.5); WBC 6.6 thou/uL (4.0-11.0)
[2016-08-28 06:57] LABS: MANUAL DIFF NO
[2016-08-28 07:29] VITALS: BP 141/88
[2016-08-28 11:28] VITALS: BP 124/61
[2016-08-28 15:29] VITALS: BP 126/67
[2016-08-28 20:09] VITALS: BP 141/72
[2016-08-28 22:52] VITALS: BP 130/100
[2016-08-29] VITALS (8 sets, daily range): BP systolic 86–133; BP diastolic 42–65
[2016-08-29 04:44] LABS: CALCIUM 8.2 mg/dL (8.5-10.1); CREATININE 1.1 mg/dL (0.7-1.3); POTASSIUM 3.7 mmol/L (3.5-5.1)
[2016-08-29 04:49] LABS: HEMATOCRIT 32.9 % (42.0-52.0)
[2016-08-29 04:52] LABS: MCH 30.7 pg (26.0-34.0); MCHC 33.4 g/dL (28.0-37.0); MCV 91.9 fL (80.0-100.0); PLATELET COUNT 86 thou/uL (150-400); RBC 3.58 mil/uL (4.50-6.00); RDW 15.9 % (10.5-14.5); WBC 3.8 thou/uL (4.0-11.0)
[2016-08-29 04:53] LABS: MANUAL DIFF YES
[2016-08-29 05:23] LABS: ABSOLUTE NEUTROPHILS 3.6 thou/uL (1.4-8.2); PLATELET ESTIMATE DECREASED; POLYCHROMASIA SLIGHT; TOTAL CELL COUNT 100
[2016-08-30 05:00] VITALS: BP 90/45
[2016-08-30 06:17] LABS: HEMATOCRIT 31.4 % (42.0-52.0); HEMOGLOBIN 10.2 gm/dL (14.0-18.0); MCH 30.5 pg (26.0-34.0); MCHC 32.6 g/dL (28.0-37.0); MCV 93.7 fL (80.0-100.0); RBC 3.35 mil/uL (4.50-6.00); RDW 15.6 % (10.5-14.5); WBC 6.7 thou/uL (4.0-11.0)
[2016-08-30 06:28] LABS: CALCIUM 7.7 mg/dL (8.5-10.1); CREATININE 1.1 mg/dL (0.7-1.3)
[2016-08-30 11:34] VITALS: BP 101/44
[2016-08-30 15:58] VITALS: BP 129/55
[2016-08-30 19:12] VITALS: BP 130/78
[2016-08-30 19:55] VITALS: BP 135/84
[2016-08-31 03:45] VITALS: BP 113/54
[2016-08-31 06:07] LABS: HEMATOCRIT 30.6 % (42.0-52.0); MCH 30.4 pg (26.0-34.0); MCHC 32.6 g/dL (28.0-37.0); MCV 93.1 fL (80.0-100.0); RBC 3.28 mil/uL (4.50-6.00); RDW 15.6 % (10.5-14.5); WBC 4.9 thou/uL (4.0-11.0)
[2016-08-31 06:17] LABS: MANUAL DIFF YES
[2016-08-31 06:21] LABS: CALCIUM 8.1 mg/dL (8.5-10.1); POTASSIUM 4.2 mmol/L (3.5-5.1)
[2016-08-31 08:42] VITALS: BP 108/47
[2016-08-31 09:32] LABS: ABSOLUTE NEUTROPHILS 3.5 thou/uL (1.4-8.2); ATYPICAL LYMPHS 3 %; TOTAL CELL COUNT 100
[2016-08-31 09:33] LABS: ANISOCYTOSIS SLIGHT
[2016-08-31 09:34] LABS: PLATELET COUNT 74 thou/uL (150-400)
[2016-08-31 09:35] LABS: LARGE PLATELETS FEW
[2016-08-31 11:43] VITALS: BP 114/41
[2016-08-31 12:34] LABS: ABG SAMPLE TYPE ARTERIAL; BE(vivo) 3.3 mmol/L (-2 to +3); HCO3 32.3 mmol/L (22.0-26.0); LACTATE 2.36 mmol/L (0.5-2.0); O2(CT) 16.9 mL/dL (15.0-23.0); PO2 88.2 mmHg (80.0-100.0); sO2 95.1 % (92.0-98.0); tCO2 34.6 mmol/L (24.0-30.0)
[2016-08-31 12:35] LABS: PCO2 73.2 mmHg (35.0-45.0); STICK SITE R.RADIAL; pH 7.263 (7.360-7.450)
[2016-08-31 14:32] LABS: ABG SAMPLE TYPE ARTERIAL; BE(vivo) 5.7 mmol/L (-2 to +3); HCO3 34.5 mmol/L (22.0-26.0); LACTATE 1.42 mmol/L (0.5-2.0); O2(CT) 15.9 mL/dL (15.0-23.0); O2Hb 92.6 % (92.0-98.0); PCO2 73.6 mmHg (35.0-45.0); PO2 73.6 mmHg (80.0-100.0); pH 7.289 (7.360-7.450); sO2 92.5 % (92.0-98.0); tCO2 36.8 mmol/L (24.0-30.0)
[2016-08-31 14:33] LABS: STICK SITE R.RADIAL
[2016-08-31 15:06] LABS: ALPHA TOCOPHEROL 6.6 mg/L (5.3-17.5)
[2016-08-31 16:00] VITALS: BP 135/61
[2016-08-31 19:26] VITALS: BP 142/63
[2016-09-01] VITALS (66 sets, daily range): BP systolic 71–146; BP diastolic 29–111
[2016-09-01 04:45] LABS: HEMATOCRIT 28.5 % (42.0-52.0); HEMOGLOBIN 9.5 gm/dL (14.0-18.0); MCH 30.9 pg (26.0-34.0); MCHC 33.5 g/dL (28.0-37.0); MCV 92.3 fL (80.0-100.0); RBC 3.09 mil/uL (4.50-6.00); RDW 15.5 % (10.5-14.5); WBC 3.9 thou/uL (4.0-11.0)
[2016-09-01 05:01] LABS: MANUAL DIFF YES
[2016-09-01 05:02] LABS: ANION GAP 1 mmol/L (7-16); BUN 16 mg/dL (7-18); CHLORIDE 102 mmol/L (98-107); CO2 37 mmol/L (21-32); CREATININE 1.2 mg/dL (0.7-1.3); GLUCOSE 134 mg/dL (74-106); POTASSIUM 4.6 mmol/L (3.5-5.1); SODIUM 140 mmol/L (136-145)
[2016-09-01 05:09] LABS: MAGNESIUM 1.5 mg/dL (1.8-2.4); TROPONIN-I < 0.04 ng/mL (<0.04-0.07)
[2016-09-01 07:23] LABS: ABSOLUTE NEUTROPHILS 3.1 thou/uL (1.4-8.2); METAMYELOCYTES 4 %; TOTAL CELL COUNT 100
[2016-09-01 07:25] LABS: ANISOCYTOSIS 1+; PLATELET COUNT 59 thou/uL (150-400)
[2016-09-01 07:26] LABS: OVALOCYTES FEW
[2016-09-01 14:04] LABS: URINE BILIRUBIN NEGATIVE (Negative); URINE BLOOD 1+ (Negative); URINE COLOR YELLOW; URINE GLUCOSE-RANDOM* NEGATIVE (Negative); URINE KETONES NEGATIVE (Negative); URINE LEUKOCYTES-REFLEX NEGATIVE (Negative); URINE PROTEIN (DIPSTICK) NEGATIVE (Negative); URINE SPECIFIC GRAVITY <= 1.005 (1.003-1.035); URINE UROBILINOGEN 0.2 E.U./dl (0.2-1.0)
[2016-09-01 14:15] LABS: SQUAMOUS None Seen /LPF (0-3)
[2016-09-01 14:16] LABS: CASTS None Seen /LPF (None Seen); CRYSTALS None Seen /LPF (None Seen); URINE RBC 0-2 Rare /HPF (0-2); URINE WBC-REFLEX None Seen /HPF (0-5)
[2016-09-01 14:45] LABS: APTT 28.4 Seconds (24.5-32.8); FIBRINOGEN 406.4 mg/dL (210-360); INR 1.3; PROTIME 13.1 Seconds (9.3-11.4)
[2016-09-01 21:15] LABS: ABG SAMPLE TYPE ARTERIAL; BE(vivo) 5.6 mmol/L (-2 to +3); HCO3 33.1 mmol/L (22.0-26.0); LACTATE 1.06 mmol/L (0.5-2.0); PCO2 63.7 mmHg (35.0-45.0); pH 7.334 (7.360-7.450); sO2 75.9 % (92.0-98.0); tCO2 35.1 mmol/L (24.0-30.0)
[2016-09-01 21:18] LABS: O2Hb 78.3 % (92.0-98.0); PO2 44.4 mmHg (80.0-100.0); STICK SITE R.RADIAL
[2016-09-02] VITALS (26 sets, daily range): BP systolic 58–126; BP diastolic 39–76
[2016-09-02 15:58] LABS: ABG SAMPLE TYPE ARTERIAL; HCO3 31.4 mmol/L (22.0-26.0); LACTATE 0.83 mmol/L (0.5-2.0); O2(CT) 15.6 mL/dL (15.0-23.0); O2Hb 94.2 % (92.0-98.0); PO2 83.3 mmHg (80.0-100.0); sO2 94.5 % (92.0-98.0); tCO2 33.5 mmol/L (24.0-30.0)
[2016-09-02 16:15] LABS: PCO2 68.9 mmHg (35.0-45.0); STICK SITE R.RADIAL; pH 7.276 (7.360-7.450)
== END 2016-09-02 13:05 | DRG 133 ==
LOC: OR 05:33 → TBA 05:34 → OR 08:15 → ICU 18:57 → 4S 18:58 → OR 18:58 → ICU 18:58 → 4S 08-26 18:48 → ICU 09-01 04:39
PROVIDERS: Internal Medicine; Internal Medicine Cardiovascular Disease; Internal Medicine Endocrinology, Diabetes & Metabolism; Internal Medicine Hematology & Oncology; Internal Medicine Pulmonary Disease; Nurse Practitioner Acute Care; Otolaryngology Plastic Surgery within the Head & Neck; Psychiatry & Neurology Neurology
PROC: 0HB1XZZ Excision of Face Skin, External Approach (ICD-10-PCS; principal; 2016-08-25)
PROC: 0HX1XZZ Transfer Face Skin, External Approach (ICD-10-PCS; principal; 2016-08-25)
PROC: 0BH17EZ Insertion of Endotracheal Airway into Trachea, Via Natural or Artificial Opening (ICD-10-PCS; 2016-08-26)
PROC: 5A1935Z Respiratory Ventilation, Less than 24 Consecutive Hours (ICD-10-PCS; 2016-08-26)
PROC: 02HV33Z Insertion of Infusion Device into Superior Vena Cava, Percutaneous Approach (ICD-10-PCS; 2016-08-29)
PROC: B548ZZA Ultrasonography of Superior Vena Cava, Guidance (ICD-10-PCS; 2016-08-29)
DX: C76.0 Malignant neoplasm of head, face and neck (principal); J96.21 Acute and chronic respiratory failure with hypoxia; J96.22 Acute and chronic respiratory failure with hypercapnia; G93.40 Encephalopathy, unspecified; J15.0 Pneumonia due to Klebsiella pneumoniae; L97.909 Non-pressure chronic ulcer of unspecified part of unspecified lower leg with unspecified severity; E87.0 Hyperosmolality and hypernatremia; J98.11 Atelectasis; F02.81 Dementia in other diseases classified elsewhere, unspecified severity, with behavioral disturbance; G20 Parkinson's disease; J44.9 Chronic obstructive pulmonary disease, unspecified; E78.00 Pure hypercholesterolemia, unspecified; G40.909 Epilepsy, unspecified, not intractable, without status epilepticus; K21.9 Gastro-esophageal reflux disease without esophagitis; E78.5 Hyperlipidemia, unspecified; G47.33 Obstructive sleep apnea (adult) (pediatric); I48.2 Chronic atrial fibrillation; N40.0 Benign prostatic hyperplasia without lower urinary tract symptoms; I25.10 Atherosclerotic heart disease of native coronary artery without angina pectoris; I27.2 Other secondary pulmonary hypertension; G25.81 Restless legs syndrome; I87.2 Venous insufficiency (chronic) (peripheral); R41.0 Disorientation, unspecified; D69.6 Thrombocytopenia, unspecified; E66.9 Obesity, unspecified; I11.9 Hypertensive heart disease without heart failure; Z96.653 Presence of artificial knee joint, bilateral; Z79.899 Other long term (current) drug therapy; Z87.891 Personal history of nicotine dependence; Z88.8 Allergy status to other drugs, medicaments and biological substances; Z88.6 Allergy status to analgesic agent; Z86.73 Personal history of transient ischemic attack (TIA), and cerebral infarction without residual deficits; Z99.81 Dependence on supplemental oxygen; Z79.01 Long term (current) use of anticoagulants; Z98.42 Cataract extraction status, left eye; Z79.82 Long term (current) use of aspirin; Z68.26 Body mass index [BMI] 26.0-26.9, adult; Z98.41 Cataract extraction status, right eye; Z90.49 Acquired absence of other specified parts of digestive tract; Z82.49 Family history of ischemic heart disease and other diseases of the circulatory system; Z66 Do not resuscitate; Z51.5 Encounter for palliative care
CPT/HCPCS: 10078; 10100; 27000; 50010; 50101; 50386; 50398; 51412; 56524; 56525; 56526; 56527; 56528; 56760; 62110; 62900; 70005